=== PATIENT | female | born 1945 | race Caucasian/White ===

== ENCOUNTER 2017-10-19 10:46 | Emergency (ER) | payer MEDICARE, OTHER ==
[~2017-10-19] VITALS: Ht 162.6 cm; Wt 81.5 kg
[2017-10-19 10:49] VITALS: BP 182/99; PULSE 84; RESP 16; TEMP 98.5; O2SAT 100
[2017-10-19] MEDS ORDERED: OMEP20TA93 PO (11:00)
[2017-10-19] MEDS ORDERED: METO25TA3 PO (11:00)
--- NOTE | 2017-10-19 11:32 | PD ---
HPI Chief Complaint: Injury Time Seen by Provider: 11:11 Travel History International Travel<30 days: No Contact w/Intl Traveler<30days: No Traveled to known affect area: No History of Present Illness HPI visiting from [place] and has no local doctor. patient noted 2 weeks worth of right knee discomfort which improved with ice and nsaids. however , yesterday she noticed a swelling just below her knee cap area, not tender to touch but it created "ridges" on her leg and she was concerned and decided to come in for evaluation. patient is able to ambulate on it, hears some popping noise with bending and walking on it. denies any fever/rash/brooke/cp/n/v/d at this point. all:levaquin pmhx/pshx sig for htn, diverticulitis, appendectomy, oophorectomy for ectopic and gerd. PFSH Past Medical History Diminished Hearing: No Gastrointestinal Disorders: Yes (diverticulitis) GERD: Yes Hypertension: Yes Tetanus Vaccination: < 5 Years Influenza Vaccination: Yes : 1 Para: 0 Ectopic : Yes (ooprectomy) Past Surgical History Abdominal Surgery: Yes (colostomy and reversal in 2016 from obstruction and rupture) Appendectomy: Yes (2016) Social History Alcohol Use: No Tobacco Use: No Substance Use: No Allergies-Medications (Allergen,Severity, Reaction): Coded Allergies: levofloxacin (Verified Allergy, Severe, Swelling, 10/19/17) Reported Meds & Prescriptions Reported Meds & Active Scripts Active Reported Omeprazole 20 Mg Tab 20 Mg PO EVERY OTHER DAY Metoprolol Tartrate 25 Mg Tab 25 Mg PO DAILY@1600 Review of Systems General / Constitutional: No: Fever Eyes: No: Visual changes HENT: No: Headaches Cardiovascular: No: Chest Pain or Discomfort Respiratory: No: Shortness of Breath Gastrointestinal: No: Abdominal Pain Genitourinary: No: Dysuria Musculoskeletal: Positive: Pain (see hpi) Skin: No Rash Neurologic: No: Weakness Psychiatric: No: Depression Endocrine: No: Polydipsia Hematologic/Lymphatic: No: Easy Bruising Physical Exam Narrative GENERAL: SKIN: Warm and dry. HEAD: Atraumatic. Normocephalic. EYES: Pupils equal and round. No scleral icterus. No injection or drainage. ENT: No nasal bleeding or discharge. Mucous membranes pink and moist. NECK: Trachea midline. No JVD. CARDIOVASCULAR: Regular rate and rhythm. RESPIRATORY: No accessory muscle use. Clear to auscultation. Breath sounds equal bilaterally. GASTROINTESTINAL: Abdomen soft, non-tender, nondistended. MUSCULOSKELETAL: Extremities without clubbing, cyanosis, or edema. No obvious deformities. upon examination, neg anterior/posterior drawer sign, neg mahsa' s, neg kristen's sign. no overlying cellulitis. patient had no pain with passive knee ROM. NEUROLOGICAL: Awake and alert. No obvious cranial nerve deficits. Motor grossly within normal limits. Five out of 5 muscle strength in the arms and legs. Normal speech. PSYCHIATRIC: Appropriate mood and affect; insight and judgment normal. Data Data Last Documented VS Vital Signs Date Time Temp Pulse Resp B/P (MAP) Pulse Ox O2 Delivery O2 Flow Rate FiO2 10/19/17 10:49 98.5 84 16 182/99 (126) [address] Knee W Iv Contrast (10/19/17 ) Complete Blood Count With Diff (10/19/17 11:11) Basic Metabolic Panel (Bmp) (10/19/17 11:11) C-Reactive Protein (Crp) (10/19/17 11:11) Westergren Sedimentation Rate (10/19/17 11:11) Uric Acid (10/19/17 11:11) Us Leg Venous Doppler (10/19/17 11:21) Labs Laboratory Tests Test 10/19/17 11:50 White Blood Count 7.2 TH/MM3 Red Blood Count 4.75 MIL/MM3 Hemoglobin 14.3 GM/DL Hematocrit 42.3 % Mean Corpuscular Volume 89.0 FL Mean Corpuscular Hemoglobin 30.2 PG Mean Corpuscular Hemoglobin Concent 33.9 % Red Cell Distribution Width 13.9 % Platelet Count 319 TH/MM3 Mean Platelet Volume 7.1 FL Neutrophils (%) (Auto) 49.4 % Lymphocytes (%) (Auto) 42.5 % Monocytes (%) (Auto) 6.4 % Eosinophils (%) (Auto) 1.0 % Basophils (%) (Auto) 0.7 % Neutrophils # (Auto) 3.6 TH/MM3 Lymphocytes # (Auto) 3.1 TH/MM3 Monocytes # (Auto) 0.5 TH/MM3 Eosinophils # (Auto) 0.1 TH/MM3 Basophils # (Auto) 0.1 TH/MM3 CBC Comment DIFF FINAL Differential Comment Erythrocyte Sedimentation Rate 8 mm/hr Blood Urea Nitrogen 20 MG/DL Creatinine 0.90 MG/DL Random Glucose 91 MG/DL Calcium Level 9.3 MG/DL Uric Acid 5.1 MG/DL Sodium Level 141 MEQ/L Potassium Level 4.1 MEQ/L Chloride Level 107 MEQ/L Carbon Dioxide Level 28.8 MEQ/L Anion Gap 5 MEQ/L Estimat Glomerular Filtration Rate 62 ML/MIN C-Reactive Protein LESS THAN 0.29 MG/DL MDM Medical Decision Making Medical Screen Exam Complete: Yes Emergency Medical Condition: Yes Medical Record Reviewed: Yes Differential Diagnosis toledo's cyst v gout v septic arthritis Narrative Course ultrasound confirms no dvt but present toledo's cyst of right knee cbc shows no leukocytosis, anemia or abnormal platelet count. also no left shift noted. normal electrolytes, normal kidney function, neg esr/crp/ and normal urate Diagnosis Primary Impression: Toledo's cyst of knee Qualified Codes: M71.21 - Synovial cyst of popliteal space [[place]], right knee Patient Instructions: Bakers Cyst (ED), General Instructions Additional Instructions: advised to use compression stockings Scripts Furosemide (Lasix) 20 Mg Tab 20 MG PO DAILY, #3 TAB 0 Refills Prov: Rm Mcgee MD 10/19/17 Disposition: 01 DISCHARGE HOME Condition: Stable Rm Mcege MD Oct 19, 2017 11:32
--- NOTE | 2017-10-19 11:59 | RADRPT ---
EXAM DATE/TIME: 10/19/2017 11:33 [facility] COMPARISON: No previous studies available for comparison. INDICATIONS : Right leg edema. MEDICAL HISTORY : Hypertension. Diverticulitis. GERD. SURGICAL HISTORY : Appendectomy. Colostomy and reversal for obstruction and ruptire. Ooprectomy. ENCOUNTER: Initial ACUITY: 3 weeks PAIN SCORE: 6/10 LOCATION: Right leg. TECHNIQUE: Venous ultrasound of the leg was performed from the inguinal ligament to the proximal calf. Real-crystal e, color Doppler and spectral tracing, compression and augmentation techniques were used. FINDINGS: There is normal compressibility of the deep venous system from the inguinal region to the proximal ca lf. No echogenic clot is seen in the lumen of the common femoral, femoral, popliteal, and posterior tibial veins. There is a normal response of the venous system to proximal and distal augmentation an d respiration. Elongated slightly greater than 7 cm nearly anechoic collection in the right popliteal space consiste nt with Toledo's cyst CONCLUSION: No evidence of right lower extremity DVT. Probable Toledo's cyst. MRI of the knee could be performed for confirmation if clinically indicated Venu Mane MD on October 19, 2017 at 11:57 Board Certified Radiologist. This report was verified electronically.
[2017-10-19 12:09] LABS: AUTOMATED NEUTROPHIL # 3.6 TH/MM3 (1.8-7.7); BASOPHIL # 0.1 TH/MM3 (0-0.2); BASOPHIL % 0.7 % (0.0-2.0); EOSINOPHIL # 0.1 TH/MM3 (0-0.4); HEMATOCRIT 42.3 % (35.0-46.0); HEMOGLOBIN 14.3 GM/DL (11.6-15.3); LYMPH % 42.5 % (9.0-44.0); LYMPHOCYTE # 3.1 TH/MM3 (1.0-4.8); MEAN CORPUSCULAR HEMOGLOBIN 30.2 PG (27.0-34.0); MEAN CORPUSCULAR HGB CONC 33.9 % (32.0-36.0); MEAN PLATELET VOLUME 7.1 FL (7.0-11.0); MONO % 6.4 % (0.0-8.0); MONOCYTE # 0.5 TH/MM3 (0-0.9); NEUT % 49.4 % (16.0-70.0); PLATELET COUNT 319 TH/MM3 (150-450); RED BLOOD COUNT 4.75 MIL/MM3 (4.00-5.30); RED CELL DISTRIBUTION WIDTH 13.9 % (11.6-17.2); WHITE BLOOD COUNT 7.2 TH/MM3 (4.0-11.0)
[2017-10-19 12:24] LABS: BICARBONATE 28.8 MEQ/L (21.0-32.0); BLOOD UREA NITROGEN 20 MG/DL (7-18); C-REACTIVE PROTEIN LESS THAN 0.29 MG/DL (0.00-0.30); CALCIUM 9.3 MG/DL (8.5-10.1); CHLORIDE 107 MEQ/L (98-107); GLOMERULAR FILTRATION RATE 62 ML/MIN (>89); GLUCOSE,RANDOM 91 MG/DL (74-106); SODIUM (NA) 141 MEQ/L (136-145)
[2017-10-19] MEDS ORDERED: FURO1TAB62 PO (13:05)
[2017-10-19] MEDS ORDERED: IOHEXOL 350 MG/ML 10 ML VIAL (for RAD DIAG) IVCONTRAST ONE (13:12)
--- NOTE | 2017-10-19 13:37 | RADRPT ---
EXAM DATE/TIME: 10/19/2017 13:06 [facility] COMPARISON: No previous studies available for comparison. INDICATIONS : Right knee pain and swelling with no known injury. IV CONTRAST: 66 cc Omnipaque [id number] (iohexol) IV RADIATION DOSE: 7.50 CTDIvol (mGy) MEDICAL HISTORY : Hypertension. SURGICAL HISTORY : None. ENCOUNTER: Initial ACUITY: 2 weeks PAIN SCALE: 4/10 LOCATION: Right extremity TECHNIQUE: Volumetric scanning of the knee was performed. Using automated exposure control and adjustment of th e mA and/or kV according to patient size, radiation dose was kept as low as reasonably achievable to obtain optimal diagnostic quality images. DICOM format image data is available electronically for re view and comparison. FINDINGS: There is is small joint effusion evident. There is no evidence for fracture. Pelvis no artery is patent There is no abnormal contrast enhancement. CONCLUSION: Trace of joint effusion, nonspecific There is posterior fracture. Jose J Carvalho MD FACR on October 19, 2017 at 13:35 Board Certified Radiologist. This report was verified electronically.
== END 2017-10-19 14:28 | disposition home or self-care (01) ==
LOC: NEPD 10:46
DX: M71.21 Synovial cyst of popliteal space [Baker], right knee (principal); K57.92 Diverticulitis of intestine, part unspecified, without perforation or abscess without bleeding; K21.9 Gastro-esophageal reflux disease without esophagitis; I10 Essential (primary) hypertension; Z79.899 Other long term (current) drug therapy
CPT/HCPCS: 73701; 80048; 84550; 85025; 85652; 86140; 93971; 99284; Q9967